=== PATIENT | female | born 1950 | race American Indian/Alaskan Native ===

== ENCOUNTER 2021-07-09 06:58 | Day surgery (SDC) | payer MEDICARE, MEDICAID ==
[2021-07-02 11:51] LABS: BASOPHILS % (AUTO) 0.3 % (0-1); EOSINOPHILS % (AUTO) 0 % (0-6); LYMPHOCYTES # (AUTO) 0.2 X10'3 (1.1-4.8); LYMPHOCYTES % (AUTO) 5.4 % (21-51); MEAN CORPUSCULAR HEMOGLOBIN 38.3 PG (27.0-31.0); MEAN CORPUSCULAR HGB CONC 34.5 g/dL (33.0-36.5); MEAN CORPUSCULAR VOLUME 110.8 FL (78-98); MEAN PLATELET VOLUME 7.8 FL (7.4-10.4); MONOCYTES # (AUTO) 0.1 X10'3 (0-0.9); MONOCYTES % (AUTO) 2.1 % (2-12); NEUTROPHILS # (AUTO) 3.5 X10'3 (1.8-7.7); NEUTROPHILS % (AUTO) 92.2 % (42-75); PRE OP HEMATOCRIT 29.7 % (35.0-45.0); PRE OP PLATELET COUNT 360 X10'3 (140-440); RED BLOOD COUNT 2.68 X10'6 (4.20-5.60); RED CELL DISTRIBUTION WIDTH 16.2 % (11.5-14.5)
[2021-07-02 11:53] LABS: PRE OP HEMOGLOBIN 10.3 g/dL (12.0-16.0)
[2021-07-02 11:58] LABS: ALBUMIN 3.4 G/DL (3.4-5.0); ALKALINE PHOSPHATASE 64 IU/L (46-116); BLOOD UREA NITROGEN 25 MG/DL (7-18); BUN/CREATININE RATIO 13.2 (6.6-38.0); CALCIUM 8.8 MG/DL (8.5-10.1); CHLORIDE 104 MMOL/L (99-107); PRE OP ALT 21 U/L (30-65); PRE OP ANION GAP 10 (8-16); PRE OP AST 26 U/L (10-37); PRE OP BILIRUB, TOTAL 0.3 MG/DL (0.0-1.0); PRE OP GLUCOSE 151 MG/DL (70-104); PRE OP POTASSIUM 4.3 MMOL/L (3.4-5.1); PRE OP SODIUM 134 MMOL/L (135-145); TOTAL CARBON DIOXIDE 19.8 MMOL/L (24-32); TOTAL PROTEIN 6.7 G/DL (6.4-8.2); eGFR 26 ML/MIN
[2021-07-02 12:25] LABS: PLATELET ESTIMATE NORMAL
[2021-07-02 12:26] LABS: ANISOCYTOSIS 1+; SCHISTOCYTES FEW
[2021-07-02 12:27] LABS: ELLIPTOCYTES FEW
[~2021-07-09] VITALS: Ht 170.2 cm; Wt 54.4 kg
[~2021-07-09 06:58] MED LIST: ALBU8HFA PO; AMOX-580 PO; ATOV750O PO; BUPIVAcaine/PF 2.5 mg/ml (0.25%) 30ml vial ONE; CLON0.1T2 PO; HYDR-4070 PO; LOVA20TA2 PO; MONT-40 PO; PRED15SO23 EACHEYE; PRED20TA PO; TRAM50TA2 PO; bacitracin 15gm ointment TP ONE; cefazolin/dext.iso 2gm/50ml 50 ML IV ONE; famotidine 20mg tablet PO ONE; ringers solution, lacted 1,000 ML IV SCH
--- NOTE | 2021-07-09 10:18 | NUR ---
PT'S SURGERY CANCELLED AT THIS TIME BY DR MATTHEWS. PT WAITING FOR CARDIAC CLEARANCE. SURGERY TO BE RESCHEDULED AFTER CARDIAC CLEARANCE. Addendum: 07/09/21 at 1019 by Nancy Granda RN Amended: Links added.
== END 2021-07-09 14:20 | disposition home or self-care (01) ==
LOC: PAS 06:58
PROVIDERS: ATTEND Podiatrist Foot & Ankle Surgery
DX: M19.072 Primary osteoarthritis, left ankle and foot (principal); Z53.8 Procedure and treatment not carried out for other reasons; M20.22 Hallux rigidus, left foot; M21.42 Flat foot [pes planus] (acquired), left foot; J45.909 Unspecified asthma, uncomplicated; F32.9 Major depressive disorder, single episode, unspecified; I12.9 Hypertensive chronic kidney disease with stage 1 through stage 4 chronic kidney disease, or unspecified chronic kidney disease; N18.4 Chronic kidney disease, stage 4 (severe); M85.80 Other specified disorders of bone density and structure, unspecified site; Z20.822 Contact with and (suspected) exposure to COVID-19; Z88.8 Allergy status to other drugs, medicaments and biological substances; Z91.09 Other allergy status, other than to drugs and biological substances; Z98.890 Other specified postprocedural states; Z90.710 Acquired absence of both cervix and uterus; Z96.653 Presence of artificial knee joint, bilateral; Z79.899 Other long term (current) drug therapy
CPT/HCPCS: 36415; 80053; 82948; 85025; 93005; J3490; U0003; U0005; 85008; J7120

== ENCOUNTER 2022-09-10 10:55 | Outpatient (CLI) | payer MEDICARE, MEDICAID ==
[~2022-09-10] VITALS: Ht 167.6 cm; Wt 63.5 kg
[~2022-09-10 10:55] MED LIST changes: -ALBU8HFA PO; +AMLO-708 PO; -AMOX-580 PO; -ATOV750O PO; +ATOV750O32 PO; +AZAT50TA18 PO; -BUPIVAcaine/PF 2.5 mg/ml (0.25%) 30ml vial ONE; +CHOL20004 PO; +DICL20GE TOP; +DOCU100C40 PO; +FAMO20TA8 PO; +FLUT12AE9 IH; +FLUT16SP2 BOTHNARES; +FOLI1TAB27 PO; +FURO-150 PO; +GABA-530 PO; +HYDR-3964 PO; +LORA-268 PO; +LORA10TA7 PO; +METO-395 PO; +MULT-1085 PO; +PRED10TA23 PO; -PRED15SO23 EACHEYE; -PRED20TA PO; +SENN-263 PO; -TRAM50TA2 PO; -bacitracin 15gm ointment TP ONE; -cefazolin/dext.iso 2gm/50ml 50 ML IV ONE; -famotidine 20mg tablet PO ONE; -ringers solution, lacted 1,000 ML IV SCH
[2022-09-10 11:42] LABS: BASOPHILS % (AUTO) 0.2 % (0-1); EOSINOPHILS % (AUTO) 0.1 % (0-6); HEMATOCRIT 25.7 % (35.0-45.0); HEMOGLOBIN 8.6 g/dl (12.0-16.0); LYMPHOCYTES # (AUTO) 0.4 X10'3 (1.1-4.8); LYMPHOCYTES % (AUTO) 6.9 % (21-51); MEAN CORPUSCULAR HGB CONC 33.6 g/dL (33.0-36.5); MEAN CORPUSCULAR VOLUME 107.2 FL (78-98); MEAN PLATELET VOLUME 7.1 FL (7.4-10.4); MONOCYTES # (AUTO) 0.2 X10'3 (0-0.9); MONOCYTES % (AUTO) 3.8 % (2-12); NEUTROPHILS # (AUTO) 5.5 X10'3 (1.8-7.7); PLATELET COUNT 394 X10'3 (140-440); RED BLOOD COUNT 2.39 X10'6 (4.20-5.60); RED CELL DISTRIBUTION WIDTH 17.3 % (11.5-14.5); WHITE BLOOD COUNT 6.2 X10'3 (4.5-11.0)
[2022-09-10 11:50] LABS: APTT 25 SECONDS (22-32)
[2022-09-10 11:52] LABS: ALANINE AMINOTRANSFERASE 19 U/L (12-78); ALBUMIN 3.3 G/DL (3.4-5.0); ALKALINE PHOSPHATASE 66 IU/L (46-116); ANION GAP 6 (8-16); ASPARTATE AMINO TRANSFERASE 22 U/L (10-37); BILIRUBIN,TOTAL 0.4 MG/DL (0.1-1.0); BLOOD UREA NITROGEN 40 MG/DL (7-18); BUN/CREATININE RATIO 23.4 (6.6-38.0); CALCIUM 8.8 MG/DL (8.5-10.1); CHLORIDE 97 MMOL/L (99-107); CREATININE 1.71 MG/DL (0.40-0.90); GLUCOSE 121 MG/DL (70-104); POTASSIUM 4.1 MMOL/L (3.5-5.1); SODIUM 135 MMOL/L (135-145); TOTAL CARBON DIOXIDE 31.7 MMOL/L (24-32); TOTAL PROTEIN 6.5 G/DL (6.4-8.2); eGFR 29 ML/MIN
[2022-09-10] MEDS ORDERED: IODIXANOL 320 MG/ML INFUS..BTL 100ML IV ONE (12:11)
[2022-09-10 13:08] LABS: ABG BASE EXCESS 0.2 mmol/L (-2.0-2.0); ABG HCO3 24.6 mmol/L (22.0-26.0); ABG OXYGEN SATURATION 91.2 % (94-97); ABG PCO2 (T) 38.9 mmHg (32.0-45.0); ALLEN'S TEST POSITIVE; FCOHb 1.2 % (0.0-3.9); FMetHb 0.3 % (0.0-1.5); FO2Hb 89.8 % (94-97); TOTAL HEMOGLOBIN 9.2 G/dl (12.0-16.0)
[2022-09-10] MEDS ORDERED: albuterol 2.5 MG/3 ML nebule NEB PRN (13:40)
== END 2022-09-10 23:59 | disposition home or self-care (01) ==
LOC: RAD 10:55
PROVIDERS: ATTEND Internal Medicine Cardiovascular Disease
DX: K76.0 Fatty (change of) liver, not elsewhere classified (principal); I35.0 Nonrheumatic aortic (valve) stenosis; R06.02 Shortness of breath; I65.29 Occlusion and stenosis of unspecified carotid artery; I25.10 Atherosclerotic heart disease of native coronary artery without angina pectoris; I70.0 Atherosclerosis of aorta; J43.9 Emphysema, unspecified; J98.11 Atelectasis; K82.8 Other specified diseases of gallbladder; R94.2 Abnormal results of pulmonary function studies; N28.1 Cyst of kidney, acquired; K59.00 Constipation, unspecified; K40.20 Bilateral inguinal hernia, without obstruction or gangrene, not specified as recurrent; Z90.710 Acquired absence of both cervix and uterus
CPT/HCPCS: 36415; 36600; 71046; 71275; 74174; 80053; 82803; 85018; 85025; 85610; 85730; 94060; 94727; 94729; 94760; J3490; Q9967

== ENCOUNTER 2022-11-10 14:30 | Outpatient (CLI) | payer MEDICARE, MEDICAID ==
[2022-11-10 16:15] LABS: BASOPHILS % (AUTO) 0.3 % (0-1); EOSINOPHILS # (AUTO) 0.1 X10'3 (0-0.9); EOSINOPHILS % (AUTO) 0.8 % (0-6); LYMPHOCYTES # (AUTO) 0.9 X10'3 (1.1-4.8); MEAN CORPUSCULAR HEMOGLOBIN 36.1 PG (27.0-31.0); MEAN CORPUSCULAR HGB CONC 33.6 g/dL (33.0-36.5); MEAN CORPUSCULAR VOLUME 107.3 FL (78-98); MEAN PLATELET VOLUME 7.3 FL (7.4-10.4); MONOCYTES # (AUTO) 0.7 X10'3 (0-0.9); MONOCYTES % (AUTO) 10.4 % (2-12); NEUTROPHILS # (AUTO) 5.1 X10'3 (1.8-7.7); NEUTROPHILS % (AUTO) 75.5 % (42-75); PRE OP HEMATOCRIT 24.2 % (35.0-45.0); PRE OP PLATELET COUNT 364 X10'3 (140-440); RED BLOOD COUNT 2.26 X10'6 (4.20-5.60); RED CELL DISTRIBUTION WIDTH 18.6 % (11.5-14.5)
[2022-11-10 16:32] LABS: PRE OP HEMOGLOBIN 8.1 g/dL (12.0-16.0)
[2022-11-10 16:38] LABS: ALBUMIN 3.1 G/DL (3.4-5.0); ALBUMIN/GLOBULIN RATIO 0.8 (1.1-1.5); ALKALINE PHOSPHATASE 87 IU/L (46-116); BLOOD UREA NITROGEN 40 MG/DL (7-18); BUN/CREATININE RATIO 23.3 (6.6-38.0); CALCIUM 9.3 MG/DL (8.5-10.1); CHLORIDE 100 MMOL/L (99-107); CREATININE 1.72 MG/DL (0.40-0.90); PRE OP ALT 14 U/L (30-65); PRE OP ANION GAP 8 (8-16); PRE OP AST 21 U/L (10-37); PRE OP BILIRUB, TOTAL 0.3 MG/DL (0.0-1.0); PRE OP GLUCOSE 104 MG/DL (70-104); PRE OP POTASSIUM 4.3 MMOL/L (3.4-5.1); PRE OP SODIUM 135 MMOL/L (135-145); TOTAL CARBON DIOXIDE 27.2 MMOL/L (24-32); eGFR 29 ML/MIN
[2022-11-10 17:01] LABS: CLARITY,URINE CLEAR (Clear); COLOR,URINE YELLOW (Yellow); GLUCOSE, URINE NEGATIVE (Neg); KETONES,URINE NEGATIVE (Neg); LEUKOCYTE ESTERASE ,URINE NEGATIVE (Neg); NITRITES, URINE NEGATIVE (Neg); OCCULT BLOOD,URINE NEGATIVE (Neg); PROTEIN,URINE NEGATIVE (Neg); UROBILINOGEN,URINE 0.2 E.U/dL (0.2-1.0)
[2022-11-10 17:05] LABS: UA COLLECTION TYPE CLN CATCH MIDSTREAM
[2022-11-10 17:15] LABS: ANISOCYTOSIS 2+; PLATELET ESTIMATE NORMAL
[2022-11-10 17:16] LABS: ELLIPTOCYTES 2+; SCHISTOCYTES FEW
[2022-11-10 17:20] LABS: PRE OP PROTIME 10.3 SECONDS (9.0-12.0)
[2022-12-03] MEDS ORDERED: ASPI81TA53 PO (11:53)
[2022-12-03] MEDS ORDERED: CEPH250T PO (12:00)
== END 2022-11-10 23:59 | disposition home or self-care (01) ==
LOC: PRE-OP 14:30 → EDSTATUS 12-02 10:00
PROVIDERS: ATTEND Internal Medicine Cardiovascular Disease
DX: J98.11 Atelectasis (principal); I35.0 Nonrheumatic aortic (valve) stenosis; R06.02 Shortness of breath; I65.29 Occlusion and stenosis of unspecified carotid artery
CPT/HCPCS: 36415; 71046; 80053; 81003; 85008; 85025; 85610; 85730; 86885; 86900; 86901; 86920; 87081; 93005